=== PATIENT | female | born 1990 | race Caucasian/White ===

== ENCOUNTER 2024-07-25 18:58 | Emergency (ER) | payer OTHER, SELFPAY ==
[2024-07-25 19:06] VITALS: BP 160/101
[2024-07-25 19:31] LABS: % Basophils 0.7 % (0-2); % Eosinophils 1.6 % (0-6); % Immature Granulocytes 0.3 % (0-0.5); % Lymphocytes 35.3 % (20.5-51.1); % Monocytes 6.8 % (1.7-9.3); % Neutrophils 55.3 % (42.2-75.2); Absolute Basophils 0.1 10^3/uL (0-0.2); Absolute Eosinophils 0.1 10^3/uL (0-0.7); Absolute Lymphocytes 3.1 10^3/uL (1.2-3.4); Absolute Monocytes 0.6 10^3/uL (0.1-0.6); Absolute Neutrophils 4.8 10^3/uL (1.4-6.5); Hematocrit 35.3 % (37.0-47.0); Hemoglobin 12.7 g/dL (12.0-16.0); Mean Corpuscular Hgb 30.2 pg (27.0-31.0); Mean Platelet Volume 8.4 fL (7.4-10.4); Nucleated Red Blood Cells % 0 %; Platelet Count 279 10^3/uL (130-400); Red Cell Dist. Width 12.3 % (11.5-14.5); White Blood Cell Count 8.6 10^3/uL (4.8-10.8)
[2024-07-25 19:40] LABS: HCG, Serum Qualitative Screen Negative
[2024-07-25 19:49] LABS: ALT (SGPT) 21 U/L (0-35); AST (SGOT) 25 U/L (14-36); Albumin 4.8 g/dl (3.5-5.0); Alkaline Phosphatase 82 U/L (38-126); Blood Urea Nitrogen 13 mg/dl (7-17); Calcium 9.2 mg/dl (8.4-10.2); Carbon Dioxide 23 mmol/L (22-30); Chloride 100 mmol/L (98-107); Glucose 91 mg/dl (70-99); Potassium 4.1 mmol/L (3.5-5.1); Sodium 135 mmol/L (135-145); Total Bilirubin 1.2 mg/dl (0.2-1.3); Total Protein 7.5 g/dl (6.3-8.2); eGFR > 60.00
[2024-07-25 19:54] LABS: Troponin I < 0.012 ng/ml
[2024-07-25 22:11] VITALS: BP 160/92
--- NOTE | 2024-07-25 22:51 | ED.GENMED ---
History of Present Illness
General
Chief Complaint: Chest Pain
Time Seen by Provider: 07/25/24 22:31
History of Present Illness
History of Present Illness:
33-year-old female presents the emergency department for evaluation of acute onset of chest pain that began while cooking dinner this evening. Patient notes that approximately 3 to 4 days ago she began having left upper quadrant abdominal pain that
has limited her ability to eat. Notes having a viral URI approximately 1 to 2 weeks ago. Has felt dizzy today as well. Chest pain today was associated with left arm tingling. No back pain, shortness of breath, or pleuritic chest pain
Past History
Past History
ED Past Medical History: GERD, HTN and Other (Headaches, poly cystic kidney disease, Rosacia, )
ED Past Surgical History: (X 3)
Patient has exhibited threatening behavior?: No
Social History
Tobacco: Non-smoker
Alcohol: None
Drug: None
Personal:
Living: with family
Employment: Employed (scheduling agent)
Family History
Family History: Other
Review of Systems
Review of Systems
Allergies reviewed?: Yes
All Other Systems: ROS reviewed and negative except as documented in HPI and ROS
Phy Exam
Physical Exam
Physical Exam:
GEN: Well appearing, NAD, WDWN
HEENT: Oral mucosa moist, no scleral icterus
Cardiac: Regular rate and rhythm, no murmurs
Lung: No respiratory distress, no tachypnea
Abdomen: Obesity limits exam however grossly nontender to palpation
MSK: No gross deformity or injuries
Skin: Good color, no pallor or jaundice, no rashes
Neuro: AO x3, moves all extremities freely
Psych: Calm, cooperative
Scores
Heart Score for Chest Pain Patients
STEMI patient?: No
History: Slightly or Non-Suspicious
ECG: Normal
Age: </= 45 years
Risk Factors: No Risk Factors
Troponin: </= Normal Limit
Heart Score for Chest Pain Patients: 0
Heart Score Risk: 2.5% MACE over next 6 weeks
Course
Orders/Labs/Results
Orders:
Orders
07/25/24 19:01
Electrocardiogram (*1) Urgent
Reason for Study: Chest Pain
EKG- Treatment ONCE
07/25/24 19:13
Test Result ONCE
07/25/24 19:22
Complete Blood Count/With Diff Urgent
Comprehensive Metabolic Panel Urgent
HCG, Serum Qualitative Screen Urgent
Comment: Notify provider if positive test present
Troponin I Urgent
Abnormal Lab Results
07/25/24
19:22
Hct 35.3 L %
(37.0-47.0)
07/25/24 19:22
07/25/24 19:22
Vital Signs
Initial and Last Documented VS:
Initial Vital Signs
Temp Pulse Resp BP Pulse Ox
98.1 F 83 20 160/101 100
07/25/24 19:06 07/25/24 19:06 07/25/24 19:06 07/25/24 19:06 07/25/24 19:06
Last Documented Vital Signs
Temp Pulse Resp BP Pulse Ox
98.1 F 68 20 160/92 98
07/25/24 19:06 07/25/24 22:11 07/25/24 19:06 07/25/24 22:11 07/25/24 22:11
MDM/Problems Addressed
MDM/Problems Addressed:
Given the litany of symptoms I suspect her chest pain was related to GERD in the setting of acute postviral gastritis. No Suspicion for ACS. No PE risk factors. Heart and lungs clear on exam, no indication for imaging
*Critical Care Note
Total Time (30-74mins, 75-104mins- exclusive of procedures): Not Applicable
ED Attending Note
-
Portions of this chart may have been created with voice recognition software.� Occasional wrong word or��sound alike� substitutions may have occurred due to the inherent limitations of voice recognition software.
Discharge Plan
Departure
Patient Disposition: Home (Routine Discharge)
Date of Disposition: 07/25/24
Time of Disposition: 22:53
Patient with high blood pressure during this ER visit?: Yes
Discharge Problem:
Atypical chest pain, Gastritis
Instructions: Gastritis
Prescriptions:
New
famotidine 20 mg tablet
20 mg PO BID 7 Days Qty: 14 0RF
pantoprazole 40 mg tablet,delayed release (DR/EC)
40 mg PO DAILY Qty: 14 0RF
Discontinued
famotidine [Pepcid] 20 mg tablet
20 mg PO DAILY Qty: 14 0RF
pantoprazole [Protonix] 40 mg tablet,delayed release (DR/EC)
40 mg PO DAILY Qty: 30 0RF
Referrals:
Adeline Keita PA-C [Family Provider] -
Interventions
Interventions:
*Risk Screen - Suicide Last Done: 07/25/24 19:06
*General Assessment Last Done: 07/25/24 19:06
*Neglect/Abuse Screening Last Done: 07/25/24 19:06
Discharge Date and Time
Print Language: GEORGIAN
== END 2024-07-25 22:59 | disposition home or self-care (01) ==
LOC: EMR 18:58
PROVIDERS: EMERGENCY PHYSICIAN Emergency Medicine; FAMILY PHYSICIAN Student in an Organized Health Care Education/Training Program
DX: R07.89 Other chest pain (principal); K29.70 Gastritis, unspecified, without bleeding; K21.9 Gastro-esophageal reflux disease without esophagitis; I10 Essential (primary) hypertension
CPT/HCPCS: 99284; 80053; 84484; 84703; 85025; 93005

== ENCOUNTER 2024-11-24 16:39 | Emergency (ER) | payer OTHER, SELFPAY ==
[2024-11-24 16:39] VITALS: BMI 49.6
[2024-11-24 16:47] VITALS: BP 158/104
--- NOTE | 2024-11-24 19:44 | ED.GENMED ---
History of Present Illness
General
Chief Complaint: Headache
Time Seen by Provider: 11/24/24 18:42
History of Present Illness
History of Present Illness:
33-year-old female presents emergency department for evaluation of an abnormal sense of smell. She reports that a fan letter in her home was left for too long and created a 'plastic like burnt smell' that has persisted despite her family being able
to smell the odor at this point. Patient denies any headache or vision changes. No other neurologic symptoms
Past History
Past History
ED Past Medical History: GERD, HTN and Other (Headaches, poly cystic kidney disease, Rosacia, )
ED Past Surgical History: (X 3)
Patient has exhibited threatening behavior?: No
Social History
Tobacco: Non-smoker
Alcohol: None
Drug: None
Personal:
Living: with family
Employment: Employed (irs agent)
Family History
Family History: Other
Review of Systems
Review of Systems
Allergies reviewed?: Yes
All Other Systems: ROS reviewed and negative except as documented in HPI and ROS
Phy Exam
Physical Exam
Physical Exam:
GEN: Well appearing, NAD, WDWN
HEENT: Oral mucosa moist, no scleral icterus, no nasal congestion
Cardiac: Regular rate
Lung: No respiratory distress, no tachypnea
MSK: No gross deformity or injuries
Skin: Good color, no pallor or jaundice, no rashes
Neuro: AO x3; CN II-XII grossly intact. BUE strength 5/5 in all mcwilliams, sensation intact and symmetric. BLE strength 5/5 in all mcwilliams, sensation intact and symmetric
Psych: Calm, cooperative
Course
Vital Signs
Initial and Last Documented VS:
Initial Vital Signs
Temp Pulse Resp BP Pulse Ox
98.5 F 89 18 158/104 100
11/24/24 16:47 11/24/24 16:47 11/24/24 16:47 11/24/24 16:47 11/24/24 16:47
Last Documented Vital Signs
Temp Pulse Resp BP Pulse Ox
98.5 F 89 18 158/104 100
11/24/24 16:47 11/24/24 16:47 11/24/24 16:47 11/24/24 16:47 11/24/24 19:46
MDM/Problems Addressed
MDM/Problems Addressed:
Not clear what is causing the patient's symptoms, certainly does not sound aneurysmal or hemorrhagic thus I do not see any indication for CT imaging of the brain
*Pulse Oximetry
SaO2: 100
Oxygen Mode of Delivery: Room air
Patient hypoxic: no
*Critical Care Note
Total Time (30-74mins, 75-104mins- exclusive of procedures): Not Applicable
ED Attending Note
-
Portions of this chart may have been created with voice recognition software.� Occasional wrong word or��sound alike� substitutions may have occurred due to the inherent limitations of voice recognition software.
Discharge Plan
Departure
Patient Disposition: Home (Routine Discharge)
Date of Disposition: 11/24/24
Time of Disposition: 19:44
Patient with high blood pressure during this ER visit?: No
Discharge Problem:
Abnormal smell
Prescriptions:
New
azithromycin [Zithromax] 250 mg tablet
250 mg PO DAILY Qty: 6 0RF
Rx Instructions:
500mg PO day 1 then 250mg PO qd x 4d
No Action
famotidine 20 mg tablet
20 mg PO BID 7 Days Qty: 14 0RF
pantoprazole 40 mg tablet,delayed release (DR/EC)
40 mg PO DAILY Qty: 14 0RF
Referrals:
Adeline Keita PA-C [Family Provider, Family Practice]
Activity Restrictions/Additional Instructions:
At this time I do not feel a CT scan of your brain will provide any information to help evaluate this abnormality, and brain MRI may be useful if your symptoms do not resolve. If you develop nasal congestion or fever you may require antibiotics for
sinusitis
Interventions
Interventions:
*Risk Screen - Suicide Last Done: 11/24/24 16:47
*General Assessment Last Done: 11/24/24 16:47
*Neglect/Abuse Screening Last Done: 11/24/24 16:47
*ED- Fall Risk Assessment Last Done: 11/24/24 18:52
*ED COVID-19 Vaccine History Last Done: 11/24/24 16:47
*Nursing Disposition Last Done: 11/24/24 19:46
ED- Neurological Assessment Last Done: 11/24/24 18:52
Discharge Date and Time
Discharge Date/Time: 11/24/24 19:46
Print Language: GERMAN
== END 2024-11-24 19:46 | disposition home or self-care (01) ==
LOC: EMR 16:39
PROVIDERS: EMERGENCY PHYSICIAN Emergency Medicine; FAMILY PHYSICIAN Student in an Organized Health Care Education/Training Program
DX: R43.9 Unspecified disturbances of smell and taste (principal); K21.9 Gastro-esophageal reflux disease without esophagitis; I10 Essential (primary) hypertension; Q61.9 Cystic kidney disease, unspecified
CPT/HCPCS: 99282

== ENCOUNTER → 2024-12-02 09:43 | Outpatient (REF) | payer OTHER, SELFPAY | LOC: PAVMRI 09:43 | PROVIDERS: ATTENDING PHYSICIAN Student in an Organized Health Care Education/Training Program | DX: R43.1 Parosmia (principal) | CPT/HCPCS: 70551 ==

== ENCOUNTER 2024-12-03 09:12 | Emergency (ER) | payer OTHER, SELFPAY ==
[2024-12-03 09:14] VITALS: BP 156/104
--- NOTE | 2024-12-03 09:31 | ED.GENMED ---
History of Present Illness
General
Chief Complaint: DVT/Possible Blood Clot
Source: patient
Exam Limitations: none
Time Seen by Provider: 12/03/24 09:21
History of Present Illness
History of Present Illness:
33yoF with a history of PCOS, hypertension not on medications, obesity presenting for evaluation of calf pain. Symptoms began this morning. She reports a pain in the back of her right calf and feels a lump there. She also felt some tingling and
warm sensation in her right foot. She became worried about a blood clot so decided to come to the ED. She denies any trauma. She is otherwise asymptomatic and denies any chest pain, shortness of breath, fevers. No personal or family history of
VTE. No recent travel or oral contraceptive use.
Past History
Past History
ED Past Medical History: GERD, HTN and Other (Headaches, poly cystic kidney disease, Rosacia, )
ED Past Surgical History: (X 3)
Patient has exhibited threatening behavior?: No
Social History
Tobacco: Non-smoker
Alcohol: None
Drug: None
Personal:
Living: with family
Employment: Employed (agricultural agent)
Family History
Family History: Other
Phy Exam
General Physical Exam
General Presentation: well appearing and no apparent distress
General Skin: warm and dry
General Habitus: normal
General Mental: alert
ENT Exam
ENT Exam: normocephalic
Pulmonary Exam
Pulmonary Exam: no respiratory distress
Neurological Exam
Neurological Exam: alert
Renick Coma Scale
Eye Opening: Spontaneous
Verbal Response: Oriented
Motor Response: Obeys Commands
GCS Total Score: 15
Musculoskeletal Exam
Musculoskeletal Exam: other (R calf: Normal to inspection. Mild tenderness to posterior calf. No pitting edema. 2+ DP pulse.)
Skin Exam
Skin Exam: normal color and warm/dry
Psychiatric Exam
Psychiatric Exam: normal mood/affect
Course
Orders/Labs/Results
Orders:
Orders
12/03/24 09:30
Venous Doppler Lwr Ext Rt [US Periph Venous LOWER Ext RT] Urgent
Comment:
Reason For Exam: R calf pain.
Vital Signs
Initial and Last Documented VS:
Initial Vital Signs
Temp Pulse Resp BP Pulse Ox
99.2 F 81 16 156/104 99
12/03/24 09:14 12/03/24 09:14 12/03/24 09:14 12/03/24 09:14 12/03/24 09:14
Last Documented Vital Signs
Temp Pulse Resp BP Pulse Ox
98.5 F 82 16 132/85 99
12/03/24 10:33 12/03/24 10:33 12/03/24 10:33 12/03/24 10:33 12/03/24 10:33
MDM/Problems Addressed
Differential Diagnosis Includes:
33yoF here with atraumatic R calf pain that began this morning. Denies CP/SOB. No pitting edema or skin changes. RLE is neurovascularly intact. Differential diagnosis includes: muscular strain, superficial thrombophlebitis, DVT
Venous duplex obtained which is negative for DVT. Supportive care reviewed and advised f/u with PCP. Patient discharged in stable condition.
*Pulse Oximetry
SaO2: 99
Oxygen Mode of Delivery: Room air
Patient hypoxic: no (99%)
*Critical Care Note
Total Time (30-74mins, 75-104mins- exclusive of procedures): Not Applicable
ED Attending Note
-
Portions of this chart may have been created with voice recognition software.� Occasional wrong word or��sound alike� substitutions may have occurred due to the inherent limitations of voice recognition software.
Discharge Plan
Departure
Patient Disposition: Home (Routine Discharge)
Date of Disposition: 12/03/24
Time of Disposition: 10:52
Patient with high blood pressure during this ER visit?: Yes
Discharge Problem:
Right calf pain
Instructions: Muscle, joint, and bone pain - Discharge instructions
Prescriptions:
No Action
famotidine 20 mg tablet
20 mg PO BID 7 Days Qty: 14 0RF
pantoprazole 40 mg tablet,delayed release (DR/EC)
40 mg PO DAILY Qty: 14 0RF
Referrals:
UNKNOWN,NO INTERVIEW [Family Provider]
Activity Restrictions/Additional Instructions:
Apply heat to affected area. Take Tylenol and ibuprofen as needed for pain.
Please follow-up with your family doctor.
Interventions
Interventions:
*Risk Screen - Suicide Last Done: 12/03/24 09:14
*General Assessment Last Done: 12/03/24 10:33
*Neglect/Abuse Screening Last Done: 12/03/24 09:14
*ED- Fall Risk Assessment Last Done: 12/03/24 10:33
*ED COVID-19 Vaccine History Last Done: 12/03/24 10:33
*Nursing Disposition Last Done: 12/03/24 11:11
ED- Cardiac Assessment Last Done: 12/03/24 10:33
ED- Pulmonary Assessment Last Done: 12/03/24 10:33
ED-Peripheral Vascular Assessment Last Done: 12/03/24 10:33
ED-Skin Assessment Last Done: 12/03/24 10:33
Discharge Date and Time
Discharge Date/Time: 12/03/24 11:12
Print Language: SLOVENIAN
[2024-12-03 10:33] VITALS: BP 132/85; BMI 51.7
== END 2024-12-03 11:12 | disposition home or self-care (01) ==
LOC: EMR 09:12
PROVIDERS: EMERGENCY PHYSICIAN Student in an Organized Health Care Education/Training Program
DX: M79.661 Pain in right lower leg (principal); R20.2 Paresthesia of skin; I10 Essential (primary) hypertension; K21.9 Gastro-esophageal reflux disease without esophagitis; Q61.3 Polycystic kidney, unspecified; Z88.8 Allergy status to other drugs, medicaments and biological substances; Z91.013 Allergy to seafood
CPT/HCPCS: 99284; 93971